=== PATIENT | male | born 1995 | race Caucasian/White ===

== ENCOUNTER 2019-06-28 14:57 | Emergency (ER) | payer OTHER, SELFPAY ==
[2019-06-28 15:14] VITALS: BP 140/86; PULSE 98; RESP 19; TEMP 37.3; O2SAT 99
--- NOTE | 2019-06-28 15:29 | ED.GENADULT ---
HPI - General Adult General Chief complaint: Upper Respiratory Infection Stated complaint: cough Time Seen by Provider: 06/28/19 15:30 Source: patient and RN notes reviewed Mode of arrival: ambulatory Limitations: no limitations History of Present Illness HPI narrative: 24-year-old male presents with complaints of nausea, diarrhea, sinus congestion, and cough for 2 days. Delsym, Sudefed, OTC allergy medication, and cough drops without relief. Rhinorrhea and nasal congestion. Dry cough and intermittent productive cough (green phlegm). No exacerbating factors. Nausea and diarrhea without vomiting and abdominal pain. Des says he had 1 episodes of watery brown stool on 06/27/19 without blood and none today. Denies fever or chills. Denies chest pain, dyspnea, coughing up blood, difficulty swallowing, jaw pain, dental pain, facial pain, foreign body sensation, and rash. Tolerating po intake well. Remains active. Some parts of this dictation were generated by voice recognition software and may contain typographical and/or grammatical inaccuracies. Related Data Home Medications Medication Instructions Recorded Confirmed No Home Medications 06/28/19 06/28/19 Allergies Allergy/AdvReac Type Severity Reaction Status Date / Time No Known Allergies Allergy Verified 06/28/19 15:20 Review of Systems Review of Systems: Narrative: CONSTITUTIONAL: Denies fever, chills, sweats. EYES: Denies visual changes, redness, discharge. ENT: Complains of rhinorrhea, congestion. Denies sore throat, otalgia. CARDIOVASCULAR: Denies chest pain, palpitations, edema. RESPIRATORY: Denies dyspnea, wheezing. Complains of dry cough/intermittent productive. GASTROINTESTINAL: Denies abdominal pain, vomiting. Complains of nausea, diarrhea. GENITOURINARY: Denies dysuria, hematuria, abnormal discharge SKIN: Denies rash or itching. MUSCULOSKELETAL: Denies acute back pain, joint pain, or myalgia. NEUROLOGIC: Denies numbness or focal weakness. PSYCHIATRIC: Denies anxiety or depression. All systems reviewed & are unremarkable except as noted in HPI and below. [facility] Past Medical History Medical History (Updated 07/03/19 @ 17:30 by RADHA Diez) No significant past medical history Surgical History Surgical History (Updated 07/03/19 @ 17:30 by Tatonya M. Flaherty, CAD APPLICATION SUPPORT SPECIALIST) History of mandibular surgery History of surgery on arm Left (ulna and radius) Hx of appendectomy Family History Family History (Updated 06/28/19 @ 15:39 by RADHA Diez) Mother Hypertension Other Diabetes mellitus Family history of cardiovascular disease Social History Social History (Updated 06/28/19 @ 15:40 by RADHA Diez) Smoking status: Never smoker Alcohol intake: current Substance use: never Occupation/Education: occupation Gender identity (if verbalized by the patient): Male Comments At time of signature, agree with nurse past medical, surgical, social, and family history. There is no relevant family history pertinent to the presenting complaint. Exam Narrative: Exam Narrative: GENERAL: This is a well-nourished, well-developed patient, in no apparent distress. Speaks in full sentences and ambulates with steady gait without dyspnea. HEAD: normocephalic, atraumatic. EYES: PERRL. Sclera clear/white. Vision is grossly intact. EARS: External ears normal, auditory canals clear and without drainage, TMs normal without perforation. Hearing grossly intact. NOSE: External nose normal with no obvious nasal discharge, nares with mild-moderate erythema and enlarged turbinates, RT worse. No rhinorrhea. NECK: Neck supple, non-tender without lymphadenopathy, masses or thyromegaly. CARDIOVASCULAR: Regular rate and rhythm without murmurs, gallops, or rubs. RESPIRATORY: Clear to auscultation. Breath sounds equal bilaterally. No wheezes, rales, or rhonchi. GASTROINTESTINAL: Abdomen soft, non-tender, nondistended. Bowel sounds
== END 2019-06-28 15:45 | disposition home or self-care (01) ==
PROVIDERS: Emergency Provider Nurse Practitioner Family
DX: B34.9 Viral infection, unspecified (principal)
CPT/HCPCS: 99213; G0463

== ENCOUNTER 2019-12-11 14:40 | Emergency (ER) | payer BC, SELFPAY ==
[2019-12-11 14:51] VITALS: BP 119/73; PULSE 82; RESP 20; TEMP 36.4; O2SAT 99
--- NOTE | 2019-12-11 14:51 | ED.URI ---
HPI - URI/Sore Throat General Chief Complaint: Upper Respiratory Infection Stated Complaint: sore throat/cough Time Seen by Provider: 12/11/19 14:51 Source: patient and RN notes reviewed History of Present Illness HPI Narrative: Patient is a 24-year-old male who presents the urgent care with complaints of sore throat that started 2 nights ago. Patient states that he was at work complaining of a sore throat and his employer wanted him to be checked . Patient denies any known fever, chills, nausea, vomiting. States he has had an intermittent mild cough without production. Patient states he does have typical seasonal allergies as well as chronic sinusitis. Patient currently denies of any other upper respiratory symptoms. No other acute complaints. No acute distress noted. Patient read the plan of care. Related Data Home Medications Medication Instructions Recorded Confirmed No Home Medications 06/28/19 12/11/19 Allergies Allergy/AdvReac Type Severity Reaction Status Date / Time No Known Allergies Allergy Verified 12/11/19 14:55 Review of Systems Review of Systems: Narrative: CONSTITUTIONAL: Denies fever, chills, or sweats. EYES: Denies visual changes, redness, or discharge. ENT: reports of sore throat CARDIOVASCULAR: Denies chest pain, palpitations, or edema. RESPIRATORY: Denies cough or dyspnea. GASTROINTESTINAL: Denies abdominal pain, nausea, vomiting, or diarrhea. GENITOURINARY: Denies dysuria or hematuria. SKIN: Denies rash or itching. MUSCULOSKELETAL: Denies back pain, joint pain, or myalgia. NEUROLOGIC: Denies headache, numbness, or weakness. All other systems reviewed are negative, except as documented in HPI. [facility] Past Medical History Medical History (Updated 12/11/19 @ 15:18 by RADHA Dyer) No significant past medical history Surgical History Surgical History (Updated 07/03/19 @ 17:30 by RADHA Diez) History of mandibular surgery History of surgery on arm Left (ulna and radius) Hx of appendectomy Family History Family History (Updated 06/28/19 @ 15:39 by RADHA Diez) Mother Hypertension Other Diabetes mellitus Family history of cardiovascular disease Social History Social History (Updated 06/28/19 @ 15:40 by RADHA Diez) Smoking status: Never smoker Alcohol intake: current Substance use: never Gender identity (if verbalized by the patient): Male Comments At the time of my signature, I reviewed and agree with the nursing past medical, surgical, social, and family history. There is no relevant family history pertinent to the patient complaint. Exam Narrative: Exam Narrative: GENERAL: This is a well-nourished, well-developed patient, in no apparent distress. HEAD: normocephalic, atraumatic. EYES: PERRL. Sclera clear/white. Vision is grossly intact. EARS: External ears normal, auditory canals clear and without drainage, TMs normal without perforation. Hearing grossly intact. NOSE: External nose normal with no obvious nasal discharge, nares without redness, no rhinorrhea. THROAT: Mucous membranes moist, moderate erythema noted to posterior oropharynx with moderate postnasal drainage. No ulceration or exudate noted. Mild tonsillar erythema. NECK: Neck supple CARDIOVASCULAR: Regular rate and rhythm without murmurs, gallops, or rubs. RESPIRATORY: Clear to auscultation. Breath sounds equal bilaterally. No wheezes, rales, or rhonchi. SKIN: warm, intact with no suspicious lesions or rash, good texture and turgor. NEURO: awake, alert, and oriented to person, place and time. There were no obvious focal neurologic abnormalities. EXTREMITIES: No clubbing, cyanosis, or edema. Course Vital Signs Vital signs: Vital Signs Temperature 97.5 F L 12/11/19 14:51 Pulse Rate 82 12/11/19 14:51 Respiratory Rate 20 12/11/19 14:51 Blood Pressure 119/73 12/11/19 14:51 Pulse Oximetry 99 12/11/19 14:51 Temperature 97.5 F
== END 2019-12-11 15:24 | disposition home or self-care (01) ==
PROVIDERS: Emergency Provider Nurse Practitioner Family
DX: J02.9 Acute pharyngitis, unspecified (principal)
CPT/HCPCS: 87081; 87880; 99213; G0463